=== PATIENT | female | born 1990 | race African-American/Black ===

== ENCOUNTER 2016-06-05 22:57 | Emergency (ER) | payer OTHER ==
[2016-06-05] MEDS ORDERED: PROPARACAINE 0.5% OPHTH DROPS 15 ML ONE (23:08)
[2016-06-05] MEDS ORDERED: LORATADINE 10 MG TABLET PO STA (23:17)
[2016-06-05] MEDS ORDERED: DEXAMETHASONE 10 MG/ML VIAL PO STA (23:17)
[2016-06-05] MEDS ORDERED: CHERRY SYRUP 10 ML UDC PO ONE (23:21)
[2016-06-05] MEDS ORDERED: LORATADINE 10 MG TABLET ONE (23:22)
[2016-06-05] MEDS ORDERED: DEXAMETHASONE 10 MG/ML VIAL ONE (23:22)
== END 2016-06-05 23:29 | disposition home or self-care (01) ==
DX: T78.3XXA Angioneurotic edema, initial encounter (principal)
CPT/HCPCS: 99283; A9270; J3490

== ENCOUNTER 2016-06-18 02:36 | Emergency (ER) | payer OTHER ==
[2016-06-18] MEDS ORDERED: ACETAMINOPHEN 325 MG TABLET PO STA (02:53)
[2016-06-18] MEDS ORDERED: ACETAMINOPHEN 500 MG TABLET PO ONE (02:59)
[2016-06-18] MEDS ORDERED: DICYCLOMINE 10 MG CAPSULE PO STA (03:23)
[2016-06-18] MEDS ORDERED: DICYCLOMINE 10 MG CAPSULE PO ONE (04:14)
== END 2016-06-18 05:29 | disposition home or self-care (01) ==
DX: R10.12 Left upper quadrant pain (principal); O26.891 Other specified pregnancy related conditions, first trimester; Z3A.01 Less than 8 weeks gestation of pregnancy
CPT/HCPCS: 36415; 76801; 80053; 81003; 83690; 85025; 99283; 99284; A9270

== ENCOUNTER 2016-09-14 09:05 | Outpatient (CLI) | payer SELFPAY ==
[2016-09-18 14:16] LABS: TEST RESULT REPORT (())
== END 2016-09-14 09:06 | disposition home or self-care (01) ==
LOC: LAB 09:05
PROVIDERS: ATTEND Obstetrics & Gynecology
DX: Z36 Encounter for antenatal screening of mother (principal)
CPT/HCPCS: 81599; 84163